=== PATIENT | female | born 1985 | race Two or more races ===

== ENCOUNTER 2025-03-01 10:35 | Day surgery (SDC) | payer MEDICAID, SELFPAY ==
--- NOTE | 2025-02-26 07:00 | EKG_ITS ---
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
[2025-02-26 11:23] VITALS: BMI 35.9
[2025-02-26 12:40] LABS: Collection Type, Urine Clean Catch
[2025-02-26 12:46] LABS: Basophils # (Auto) 0.1 Thou/mm3 (0.0-0.2); Basophils % (Auto) 1 % (0-2.5); Eosinophils # (Auto) 0.2 Thou/mm3 (0.0-0.5); Eosinophils % (Auto) 2 % (0-10); Hematocrit 37.2 % (36.0-46.0); Hemoglobin 12.3 g/dL (12.0-16.0); Immature Granulocytes % (Auto) 0 % (0-0); Immature Granulocytes Auto 0.02 Thou/mm3 (0.00-0.00); Lymphocytes # (Auto) 2.9 Thou/mm3 (1.0-4.8); Lymphocytes % (Auto) 33 % (10-50); Mean Corpuscular HGB Conc 33.1 g/dl (31.0-37.0); Mean Corpuscular Hemoglobin 26.6 pg (25.0-35.0); Mean Corpuscular Volume 80 fL (80-100); Monocytes # (Auto) 0.7 Thou/mm3 (0.0-0.8); Monocytes % (Auto) 8 % (0-12); Neutrophils # (Auto) 5.1 Thou/mm3 (1.8-7.7); Neutrophils % (Auto) 57 % (37-80); Nucleated Red Blood Cell % 0 /100 WBC (0); Platelet Count 308 Thou/mm3 (140-440); RDW Standard Deviation 39.9 fL (36.4-46.3); Red Blood Count 4.63 Miln/mm3 (4.00-5.20)
[2025-02-26 12:49] LABS: Bacteria,Urine Rare; Bilirubin,Urine Negative (Negative); Blood,Urine Negative (Negative); Clarity,Urine Clear (Clear/Hazy); Color,Urine Colorless (Lt Yel-Yel); Glucose, Urine Negative (Negative); Ketones,Urine Negative (Negative); Leukocyte Esterase,Urine Negative (Negative); Nitrite,Urine Negative (Negative); Protein,Urine Negative (Neg - Trace); RBC,Urine 1 /hpf (0-3); Specific Gravity,Urine 1.007 (1.001-1.035); Squamous Epithelial Cell,Urine < 1 /hpf (0-5); Urobilinogen,Urine Negative mg/dL (0.0-1.0); WBC,Urine < 1 /hpf (0-5)
[2025-02-26 12:51] LABS: HCG Qualitative,Urine Negative
[2025-02-26 13:12] LABS: Alanine Aminotransferase 31 U/L (10-49); Albumin, Serum 4.2 gm/dL (3.5-5.0); Albumin/Globulin Ratio 1.4 (1.2-2.2); Alkaline Phosphatase 94 U/L (46-116); Anion Gap 9 (7-16); Aspartate Amino Transferase 32 U/L (0-34); BUN/Creatinine Ratio 12 Ratio (12-20); Bilirubin,Total 0.5 mg/dL (0.3-1.2); Blood Urea Nitrogen 7 mg/dL (9-23); Calcium 8.8 mg/dL (8.3-10.6); Calcium (Corrected) 8.8 mg/dL (8.5-10.1); Carbon Dioxide 24.9 mMol/L (20.0-31.0); Chloride 107 mMol/L (98-107); Creatinine (Component) 0.6 mg/dL (0.6-1.3); Estimated Creatinine Clearance 120.6 mL/min (>60); Glucose 84 mg/dL (74-106); Osmolality,Calculated 278 (275-295); Potassium 3.5 mMol/L (3.4-5.1); Sodium 141 mMol/L (136-145); Total Protein 7.2 gm/dL (5.7-8.2); eGFR > 60 See Note
[2025-02-26 14:57] LABS: INR 1.1 (0.9-1.3); Prothrombin Time 11.5 Seconds (9.0-12.2)
--- NOTE | 2025-02-26 15:28 | SUR.PREOP ---
Cardiac records reviewed with Dr Hudson.
[2025-03-01] VITALS (8 sets, daily range): BP systolic 113–128; BP diastolic 71–89; PULSE 76–83; RESP 13–20; TEMP 36.6–37.1; O2SAT 95–98; BMI 35.9
[2025-03-01] MEDS: RINGERS LACTATED 1000 ML 1,000 ML 60 ML IV (11:07)
--- NOTE | 2025-03-01 14:02 | SUR.PHASEI ---
1403 Patient arrived to recovery resting comfortably in [facility], on oxygen 4L via nasal cannula, breathing unlabored, vital signs stable, denies pain, dressing intact to right axilla, steri-strips, gauze, abd, medipore tape, no bleeding noted, denies nausea, report received from Maya RIVERS and Dr. Medina
--- NOTE | 2025-03-01 14:17 | ESOP_ITS ---
Date of Procedure 03/01/25 Pre Op Diagnosis Painful mass right axilla Post Op Diagnosis Same. Procedure Excision of painful mass right axilla on 03/01/2025 Findings This patient had painful mass in the tail of the right breast. It appeared to be firm however was not grossly malignant appearing. There were a few lymph glands. Procedure Description This patient was interviewed in the preop area and the understanding of the procedure was ascertained. Risk benefits and alternatives were discussed with the patient and informed consent is obtained. The site was marked. Patient was then taken to the operating room. Patient was positioned in supine position with the right arm extended on the side table. General anesthesia was administ ered in a satisfactory manner. The arm shoulder breast chest wall neck regions were prepped and draped in usual manner. A timeout procedure is carried out. IV antibiotics were given as prophylaxis. A curvilinear incision is made in the base of the axilla. By gentle blunt and sharp dissection the mass is from the axillary skin and then up to the latissimus dorsi muscle. Vessels and nerves were identified and protected. Masses removed along with the axillary tail of the breast. Hemostasis was achieved. The subcutaneous tissues approximated with 3-0 Vicryl interrupted sutures and skin by 4-0 Monocryl subcuticular stitches. Steri- Strips were applied. Sterile dressing is applied. Patient taught the procedure very well. Complications none. Anesthesia GETA Drains None. Implants None. Pathology / specimen Other (Right axillary mass) Estimated Blood Loss 5 Condition Stable Disposition PACU Surgeon Yuan Raphael MD Surgical Staff Operation Date: 03/01/25 14:45 Case Staff Anesthesiologist: Danny Medina RN First Assistant: Amie Shen RN eastern philosophy professor.
--- NOTE | 2025-03-01 15:12 | SUR.PHASEII ---
1512 Patient meets discharge criteria from recovery, awake and alert, breathing unlabored, vital signs stable, denies pain, dressing intact; no bleeding noted, drinking water; denies nausea, patient assisted with dressing into her clothing by her , discharge instructions given with the assistance of the telephone electric pile driver operator Tucker ID# [id number] to patient and patients , signed discharge instructions. Patient given all her belongings prior to discharge, transported via wheelchair and left in a private vehicle.
== END 2025-03-01 15:12 | disposition home or self-care (01) ==
PROVIDERS: Anesthesiology; PCP Internal Medicine; Referring Provider Specialist; Visit Provider Specialist
PROC: (CPT 38525; principal; 2025-03-01 14:30)
DX: N63.31 Unspecified lump in axillary tail of the right breast (principal); Z01.810 Encounter for preprocedural cardiovascular examination; D36.0 Benign neoplasm of lymph nodes
CPT/HCPCS: 38525; 36415; 80053; 81001; 81025; 85025; 85610; 85730; 93005; A4217; A4649; J0131; J0690; J1100; J1885; J2250; J2405; J2704; J3010; J3490; J7120; J0665

== ENCOUNTER → 2025-09-02 | Outpatient (CLI) | payer MEDICAID, SELFPAY ==
--- NOTE | 2025-09-02 16:15 | XR_ITS ---
Examination: Screening digital mammography, bilateral Computer aided detection 3-D breast Tomosynthesis, bilateral Date and time of exam: 09/02/2025, 3:24 p.m. Comparisons: Baseline exam Indications: Screening Technique: Nonmagnified MLO, CC views of the breasts to been obtained, reconstructed from 3-D Tomosynthesis images. R2 computer aided detection program utilized for evaluation of suspicious masses and/or abnormal calcifications. 3-D Tomosynthesis images obtained. Technologist: Findings: There are scattered areas of fibroglandular density. No evidence of abnormal masses or suspicious calcifications. Impression: BI-RADS category 1: Negative findings (within normal) Recommend 1 year follow-up mammogram
== END | disposition home or self-care (01) ==
LOC: CDIM 15:13
PROVIDERS: Referring Provider Nurse Practitioner; Visit Provider Nurse Practitioner
DX: Z12.31 Encounter for screening mammogram for malignant neoplasm of breast (principal); R92.313 Mammographic fatty tissue density, bilateral breasts
CPT/HCPCS: 77063; 77067